=== PATIENT | male | born 1965 | race Caucasian/White ===

== ENCOUNTER 2022-09-02 22:02 | Emergency (ER) | payer BC ==
[~2022-09-02] VITALS: Ht 175.3 cm; Wt 90.7 kg
--- NOTE | 2022-09-02 22:06 | NUR ---
[id number] FROM HOME, TOOK GUMMIES 10MG 3 HOURS AGO, STATES "I'M HAVING A HEART ATTACK", TAKES METHADONE. PT AAOX4, AMBULATED TO THE RESTROOM W/ STEADY GAIT. PLACED IN BED, VITALS CHECKED.
--- NOTE | 2022-09-02 22:15 | NUR ---
[id number]
[2022-09-02] MEDS ORDERED: LORAZEPAM INJ 2 MG/ML VIAL ONE (22:21)
[2022-09-02] MEDS ORDERED: LORAZEPAM INJ 2 MG/ML VIAL IM ONE ×2 (22:30)
--- NOTE | 2022-09-02 23:45 | NUR ---
Patient discharged to home in stable condition. Written and verbal after care instructions given. Patient verbalizes understanding of instruction.
[2022-09-02 23:46] VITALS: BP 131/79
== END 2022-09-02 23:47 | disposition home or self-care (01) ==
LOC: ER 22:11
DX: F41.9 Anxiety disorder, unspecified (principal); F12.10 Cannabis abuse, uncomplicated; E11.9 Type 2 diabetes mellitus without complications
CPT/HCPCS: 99283; 96372; 82962; J2060